=== PATIENT | female | born 1935 | race Caucasian/White ===

== ENCOUNTER 2017-08-14 08:47 | Day surgery (SDC) | payer MEDICARE, BC ==
[2017-08-14] MEDS ORDERED: DIAZEPAM 5 MG TABLET PO ONE (08:48)
--- NOTE | 2017-08-15 07:38 | Operative Note ---
DATE: 08/14/2017. PREOPERATIVE DIAGNOSIS: LEFT CARPAL TUNNEL SYNDROME. POSTOPERATIVE DIAGNOSIS: LEFT CARPAL TUNNEL SYNDROME. PROCEDURE: Left carpal tunnel release. STAFF SURGEON: Alexei Hill M.D. ANESTHESIA: Local. PREPARATION: ChloraPrep. INDIVIDUAL CONSIDERATIONS: None. DESCRIPTION OF THE PROCEDURE: The patient was taken to the operating room and placed supine on the operating room table. Her left arm was prepped and draped in the usual fashion. The patient had an incision over the longitudinal wrist crease volarly, just stopping at the wrist crease at a 45-degree angle ulnarly. The skin was infiltrated with 1% Lidocaine with epinephrine prior. The limb was elevated, and the tourniquet was inflated to 250 mm Hg. Sharp dissection was carried down through the skin and subcutaneous tissue. Small veins were coagulated with the Bovie. Sharp dissection was carried down through the palmar fascia, through the small adductor brevis, and then through the transverse metacarpal fascia distally to the superficial arch and recurrent branch and proximally to the antebrachial fascia. The underlying median nerve was obviously compressed in an hourglass and was a bit hemorrhage, but there were no tumors present. The tourniquet was let down, and hemostasis was obtained with the Bovie after irrigation with saline and Betadine. The skin was approximated with interrupted 4-0 nylon in a vertical mattress fashion. A sterile, bulky compressive hand dressing was applied. The patient tolerated the procedure well. Needle and sponge counts were correct. Estimated blood loss was minimal. She was taken back to recovery in good condition. There were no complications. JOB NUMBER: [id number] cc: Dr. Zev KATZ
== END 2017-08-14 11:10 | disposition home or self-care (01) ==
LOC: SUR 08:47
PROVIDERS: ATTEND Orthopaedic Surgery
DX: G56.02 Carpal tunnel syndrome, left upper limb (principal); I10 Essential (primary) hypertension
CPT/HCPCS: 64721; J3490